=== PATIENT | female | born 1965 | race Caucasian/White ===

== ENCOUNTER 2023-06-30 10:40 | Outpatient (CLI) | payer BC | END 2023-06-30 10:41 | disposition home or self-care (01) | LOC: CSHMAMMO 10:40 | PROVIDERS: ATTEND Obstetrics & Gynecology | DX: Z12.31 Encounter for screening mammogram for malignant neoplasm of breast (principal); Z85.820 Personal history of malignant melanoma of skin | CPT/HCPCS: 77063; 77067 ==